=== PATIENT | female | born 1985 | race Caucasian/White ===

== ENCOUNTER → 2016-10-25 | Outpatient (CLI) | payer OTHER | LOC: LBRF 15:48 | DX: I82.511 Chronic embolism and thrombosis of right femoral vein (principal) | CPT/HCPCS: 85610 ==

== ENCOUNTER 2017-01-04 15:20 | Emergency (ER) | payer OTHER ==
[2017-01-04 16:13] LABS: HEMOGLOBIN 10.1 gm/dl (12.3-15.3); RED BLOOD COUNT 3.86 M/UL (4.00-5.10)
[2017-01-04 16:31] LABS: BUN/CREATININE RATIO 9 (0-10)
== END 2017-01-04 19:00 | disposition short-term general hospital (02) ==
LOC: ER1 15:20
PROVIDERS: Emergency Medicine
DX: T83.022A Displacement of nephrostomy catheter, initial encounter (principal); N39.0 Urinary tract infection, site not specified; F17.200 Nicotine dependence, unspecified, uncomplicated
CPT/HCPCS: 36415; 80053; 81001; 83605; 83690; 85025; 85610; 85730; 87040; 96361; 96365; 96375; 96376; 99284; J2405; J7050

== ENCOUNTER 2017-02-07 13:10 | Emergency (ER) | payer OTHER ==
[2017-02-07 14:31] LABS: RED BLOOD COUNT 3.94 M/UL (4.00-5.10); WHITE BLOOD COUNT 11.1 K/UL (4.5-11.0)
[2017-02-07 14:49] LABS: BUN/CREATININE RATIO 10 (0-10)
== END 2017-02-07 16:30 | disposition home or self-care (01) ==
LOC: ER1 13:10
PROVIDERS: Emergency Medicine
DX: N39.0 Urinary tract infection, site not specified (principal); F17.200 Nicotine dependence, unspecified, uncomplicated; Z86.718 Personal history of other venous thrombosis and embolism; Z85.41 Personal history of malignant neoplasm of cervix uteri
CPT/HCPCS: 36415; 80053; 81001; 83690; 85025; 87070; 87077; 87086; 87186; 87205; 96361; 96374; 96375; 99284; J2270; J2405

== ENCOUNTER 2020-12-05 04:10 | Emergency (ER) | payer OTHER ==
[~2020-12-05] VITALS: Ht 160 cm; Wt 56.7 kg
[~2020-12-05 04:10] MED LIST: CLARITIN10 MG PO; COUMADIN5 MG PO; CYCLOBENZAPRINE5 MG PO; ESTRACE1 MG PO; FEROSUL325 MG PO; KEPPRA1000 MG PO; MIRALAX17 GM PO; MORPHINE SULFA100 M1 PO; NEURONTIN 400400 MG PO; OXYCONTIN30 MG PO; RESTORIL15 MG PO; ZOFRAN4 MG PO
[2020-12-05 06:08] LABS: HEMOGLOBIN 13.4 gm/dl (12.3-15.3); RED BLOOD COUNT 4.68 M/UL (4.00-5.10); WHITE BLOOD COUNT 24.9 K/UL (4.5-11.0)
[2020-12-05 06:38] LABS: BUN/CREATININE RATIO 9 (0-10)
[2020-12-05] MEDS ORDERED: OXYCODONE HCL5 MG PO (19:41)
[2020-12-05] MEDS ORDERED: MORPHINE SULFAT15 M2 PO (19:42)
[2020-12-05] MEDS ORDERED: CALCIUM 250+D1 EACH PO (19:43)
[2020-12-05] MEDS ORDERED: VITAMIN B COMP1 EACH PO (19:48)
[2020-12-05] MEDS ORDERED: ONDANSETRON ODT8 MG PO (19:48)
[2020-12-05] MEDS ORDERED: GABAPENTIN800 MG PO (19:49)
[2020-12-05] MEDS ORDERED: DOCUSATE SODIU250 MG PO (19:49)
[2020-12-05] MEDS ORDERED: TYLENOL325 MG PO (19:51)
[2020-12-05] MEDS ORDERED: KEPPRA1000 MG PO (19:51)
[2020-12-05] MEDS ORDERED: GAS RELIEF80 MG PO (19:52)
[2020-12-05 20:53] LABS: ACINETOBACTER BAUMANNII Not Detected (Negative); CANDIDA ALBICANS Not Detected (Negative); CANDIDA KRUSEI Not Detected (Negative); CANDIDA TROPICALIS Not Detected (Negative); ENTEROCOCCUS Not Detected (Negative); ESCHERICHIA COLI Not Detected (Negative); HAEMOPHILUS INFLUENZAE Not Detected (Negative); KLEBSIELLA OXYTOCA Not Detected (Negative); KLEBSIELLA PNEUMONIAE Not Detected (Negative); KPC-CARBAPENEM-RESISTANCE GENE Not Detected (Negative); PSEUDOMONAS AERUGINOSA Not Detected (Negative); STAPHYLOCOCCUS Not Detected (Negative); STAPHYLOCOCCUS AUREUS Not Detected (Negative); STREP AGALACTIAE (GROUP B) Not Detected (Negative); STREP PYOGENES (GROUP A) Not Detected (Negative); STREPTOCOCCUS Not Detected (Negative); mecA (METHICILLIN RESIST GENE Not Detected (Negative); vanA/B (VANCOMYCIN RESIST GENE Not Detected (Negative)
[2020-12-05] MEDS ORDERED: COL-RITE250 MG PO (21:19)
[2020-12-05] MEDS ORDERED: PROTONIX20 MG PO (21:20)
[2020-12-05 23:56] LABS: PROTEUS DETECTED (Negative); SERRATIA MARCESANS DETECTED (Negative)
== END 2020-12-06 00:59 | disposition short-term general hospital (02) ==
LOC: ER1 04:10
PROVIDERS: Family Medicine; Student in an Organized Health Care Education/Training Program
DX: A41.9 Sepsis, unspecified organism (principal); N13.2 Hydronephrosis with renal and ureteral calculous obstruction; Z20.822 Contact with and (suspected) exposure to COVID-19; Z93.6 Other artificial openings of urinary tract status; F17.210 Nicotine dependence, cigarettes, uncomplicated; Z90.710 Acquired absence of both cervix and uterus; Z85.038 Personal history of other malignant neoplasm of large intestine
CPT/HCPCS: 0240U; 36600; 80053; 82803; 83605; 83690; 83735; 84100; 84702; 85025; 87040; 87077; 87150; 87186; 96365; 96366; 96367; 96372; 96375; 96376; 99285; J0696; J1650; J1885; J2185; J2270; J2405; J3370; J7030; J7050; J7070; J7120

== ENCOUNTER 2021-02-10 12:33 | Emergency (ER) | payer OTHER ==
[~2021-02-10 12:33] MED LIST changes: +CALCIUM 250+D1 EACH PO; +COL-RITE250 MG PO; +DOCUSATE SODIU250 MG PO; +GABAPENTIN800 MG PO; +GAS RELIEF80 MG PO; +MORPHINE SULFAT15 M2 PO; +ONDANSETRON ODT8 MG PO; +OXYCODONE HCL5 MG PO; +PROTONIX20 MG PO; +TYLENOL325 MG PO; +VITAMIN B COMP1 EACH PO
[2021-02-10 14:15] LABS: HEMOGLOBIN 13.4 gm/dl (12.3-15.3); RED BLOOD COUNT 4.54 M/UL (4.00-5.10); WHITE BLOOD COUNT 14.8 K/UL (4.5-11.0)
[2021-02-10 14:45] LABS: BUN/CREATININE RATIO 7 (0-10)
== END 2021-02-10 18:33 | disposition home or self-care (01) ==
LOC: ER1 12:33
PROVIDERS: Physician Assistant Medical
DX: N39.0 Urinary tract infection, site not specified (principal); F17.210 Nicotine dependence, cigarettes, uncomplicated; Z87.442 Personal history of urinary calculi; Z90.710 Acquired absence of both cervix and uterus; Z88.1 Allergy status to other antibiotic agents; Z79.899 Other long term (current) drug therapy
CPT/HCPCS: 80053; 81001; 83605; 85025; 87040; 87077; 87086; 87186; 96374; 96375; 96376; 99284; J0696; J1170; J1335; J2270; J2405; J3370; J7030

== ENCOUNTER 2021-04-15 05:09 | Emergency (ER) | payer OTHER ==
[2021-04-15 06:10] LABS: HEMOGLOBIN 16.2 gm/dl (12.3-15.3); RED BLOOD COUNT 5.37 M/UL (4.00-5.10); WHITE BLOOD COUNT 13.7 K/UL (4.5-11.0)
[2021-04-15 07:01] LABS: BUN/CREATININE RATIO 16 (0-10)
== END 2021-04-15 13:03 | disposition short-term general hospital (02) ==
LOC: ER1 05:09
PROVIDERS: Emergency Medicine
DX: N39.0 Urinary tract infection, site not specified (principal); N99.538 Other complication of continent stoma of urinary tract; C79.82 Secondary malignant neoplasm of genital organs; F17.210 Nicotine dependence, cigarettes, uncomplicated; Z90.710 Acquired absence of both cervix and uterus
CPT/HCPCS: 80053; 81001; 83605; 83690; 85025; 87040; 87077; 87086; 87186; 96374; 96375; 96376; 99285; J0696; J1170; J2270; J2405

== ENCOUNTER 2021-05-17 16:31 | Emergency (ER) | payer OTHER ==
[2021-05-17 18:03] LABS: HEMOGLOBIN 16.6 gm/dl (12.3-15.3); RED BLOOD COUNT 5.4 M/UL (4.00-5.10); WHITE BLOOD COUNT 15.7 K/UL (4.5-11.0)
[2021-05-17 18:45] LABS: BUN/CREATININE RATIO 23 (0-10)
[2021-05-17] MEDS ORDERED: POTASSIUM CHLO20 ME1 PO (23:51)
[2021-05-17] MEDS ORDERED: OMNICEF 300 MG300 MG PO (23:51)
[2021-05-17] MEDS ORDERED: ZOFRAN ODT 4 MG4 MG PO (23:58)
== END 2021-05-18 00:15 | disposition home or self-care (01) ==
LOC: ER1 16:31
PROVIDERS: Nurse Practitioner
DX: N32.1 Vesicointestinal fistula (principal); E87.6 Hypokalemia; F11.20 Opioid dependence, uncomplicated; F17.200 Nicotine dependence, unspecified, uncomplicated
CPT/HCPCS: 80053; 81001; 83605; 83690; 85025; 86140; 87077; 87086; 87186; 96374; 96375; 99284; J0696; J1200; J2405; J2930; Q9967

== ENCOUNTER 2021-06-18 15:37 | Emergency (ER) | payer OTHER ==
[~2021-06-18 15:37] MED LIST changes: +OMNICEF 300 MG300 MG PO; +POTASSIUM CHLO20 ME1 PO; +ZOFRAN ODT 4 MG4 MG PO
[2021-06-18 17:18] LABS: RED BLOOD COUNT 4.86 M/UL (4.00-5.10)
[2021-06-18 17:39] LABS: BUN/CREATININE RATIO 17 (0-10)
== END 2021-06-18 23:45 | disposition short-term general hospital (02) ==
LOC: ER1 15:37
PROVIDERS: Physician Assistant Medical
DX: N13.2 Hydronephrosis with renal and ureteral calculous obstruction (principal); I51.9 Heart disease, unspecified; G40.909 Epilepsy, unspecified, not intractable, without status epilepticus; F17.200 Nicotine dependence, unspecified, uncomplicated; Z88.1 Allergy status to other antibiotic agents; Z85.41 Personal history of malignant neoplasm of cervix uteri
CPT/HCPCS: 71045; 80053; 83605; 85025; 87040; 87077; 87086; 87186; 96374; 96375; 96376; 99285; J2185; J2270; J2405; U0002

== ENCOUNTER 2021-10-21 20:05 | Emergency (ER) | payer OTHER ==
[2021-10-21 20:43] LABS: HEMOGLOBIN 15.9 gm/dl (12.3-15.3); RED BLOOD COUNT 5.36 M/UL (4.00-5.10); WHITE BLOOD COUNT 18.3 K/UL (4.5-11.0)
[2021-10-21 21:10] LABS: BUN/CREATININE RATIO 11 (0-10)
[2021-10-21] MEDS ORDERED: POTASSIUM CHLO20 ME1 PO (22:54)
[2021-10-21] MEDS ORDERED: OMNICEF 300 MG300 MG PO (22:54)
== END 2021-10-22 00:10 | disposition home or self-care (01) ==
LOC: ER1 20:05
PROVIDERS: Student in an Organized Health Care Education/Training Program
DX: E87.6 Hypokalemia (principal); R82.81 Pyuria; D72.829 Elevated white blood cell count, unspecified; G62.9 Polyneuropathy, unspecified; F17.200 Nicotine dependence, unspecified, uncomplicated; Z93.6 Other artificial openings of urinary tract status; Z87.440 Personal history of urinary (tract) infections; Z88.1 Allergy status to other antibiotic agents; Z85.43 Personal history of malignant neoplasm of ovary
CPT/HCPCS: 80053; 81001; 83735; 85025; 85652; 86140; 87040; 96374; 99284; J0696

== ENCOUNTER 2021-12-21 17:10 | Emergency (ER) | payer OTHER ==
[2021-12-21 19:38] LABS: HEMOGLOBIN 12.6 gm/dl (12.3-15.3); RED BLOOD COUNT 4.1 M/UL (4.00-5.10); WHITE BLOOD COUNT 14.8 K/UL (4.5-11.0)
== END 2021-12-22 00:30 | disposition short-term general hospital (02) ==
LOC: ER1 17:10
PROVIDERS: Physician Assistant
DX: T83.092A Other mechanical complication of nephrostomy catheter, initial encounter (principal); Z20.822 Contact with and (suspected) exposure to COVID-19; F17.200 Nicotine dependence, unspecified, uncomplicated; Z85.41 Personal history of malignant neoplasm of cervix uteri; Z88.1 Allergy status to other antibiotic agents
CPT/HCPCS: 80048; 81001; 83605; 85025; 87040; 87077; 87086; 87186; 93005; 96374; 96375; 99284; J0696; J1200; J2270; J2405; J2930; U0002

== ENCOUNTER 2022-02-20 14:22 | Emergency (ER) | payer OTHER ==
[~2022-02-20] VITALS: Ht 160 cm; Wt 42.6 kg
[2022-02-20 16:47] LABS: HEMOGLOBIN 15.4 gm/dl (12.3-15.3); RED BLOOD COUNT 4.91 M/UL (4.00-5.10)
[2022-02-21 19:01] LABS: WHITE BLOOD COUNT 18.6 K/UL (4.5-11.0)
[2022-02-21 19:02] LABS: HEMOGLOBIN 11.7 gm/dl (12.3-15.3); RED BLOOD COUNT 3.85 M/UL (4.00-5.10)
[2022-02-22 05:24] LABS: HEMOGLOBIN 11.5 gm/dl (12.3-15.3); RED BLOOD COUNT 3.7 M/UL (4.00-5.10); WHITE BLOOD COUNT 14.1 K/UL (4.5-11.0)
[2022-02-22 05:42] LABS: BUN/CREATININE RATIO 12 (0-10)
== END 2022-02-22 15:34 | disposition left against medical advice (07) ==
LOC: ER1 14:22
PROVIDERS: Internal Medicine; Student in an Organized Health Care Education/Training Program
DX: N99.528 Other complication of incontinent external stoma of urinary tract (principal); N12 Tubulo-interstitial nephritis, not specified as acute or chronic; F17.210 Nicotine dependence, cigarettes, uncomplicated; Z85.41 Personal history of malignant neoplasm of cervix uteri; Z90.710 Acquired absence of both cervix and uterus; Z88.1 Allergy status to other antibiotic agents; Z93.3 Colostomy status
CPT/HCPCS: 0240U; 80048; 80053; 81001; 83605; 83690; 84703; 85025; 86140; 87040; 87077; 87086; 87186; 93005; 96365; 96375; 96376; 99283; J1170; J1630; J1885; J2185; J2270; J2405

== ENCOUNTER 2022-03-13 19:00 | Emergency (ER) | payer OTHER ==
[~2022-03-13 19:00] MED LIST changes: -PROTONIX20 MG PO; +PROTONIX40 MG PO
[2022-03-13 22:19] LABS: HEMOGLOBIN 13.7 gm/dl (12.3-15.3); RED BLOOD COUNT 4.34 M/UL (4.00-5.10); WHITE BLOOD COUNT 16.4 K/UL (4.5-11.0)
[2022-03-14] MEDS ORDERED: ONDANSETRON ODT8 MG PO (16:18)
[2022-03-14] MEDS ORDERED: IBU600 MG PO (16:19)
[2022-03-14] MEDS ORDERED: TYLENOL EXTRA500 MG PO (16:19)
[2022-03-14] MEDS ORDERED: DULOXETINE HCL30 MG PO (16:20)
[2022-03-14] MEDS ORDERED: TIZANIDINE HCL4 MG PO (16:20)
[2022-03-14] MEDS ORDERED: POTASSIUM CHLO10 ME1 PO (16:20)
[2022-03-14] MEDS ORDERED: OXYCODONE HCL15 MG PO (16:21)
== END 2022-03-14 21:00 ==
LOC: ER1 19:00
PROVIDERS: Physician Assistant
DX: N99.522 Malfunction of incontinent external stoma of urinary tract (principal); Z88.1 Allergy status to other antibiotic agents; Z85.41 Personal history of malignant neoplasm of cervix uteri; Z20.822 Contact with and (suspected) exposure to COVID-19; Y83.8 Other surgical procedures as the cause of abnormal reaction of the patient, or of later complication, without mention of misadventure at the time of the procedure
CPT/HCPCS: 80053; 81001; 83605; 85025; 87040; 87077; 87086; 87186; 96374; 96375; 96376; 99284; J1956; J2270; J2405; U0002